=== PATIENT | female | born 1990 | race Caucasian/White ===

== ENCOUNTER 2019-02-01 15:51 | Inpatient (IN) | payer BC ==
[~2019-02-01 15:51] MED LIST: Bupivacaine/Epinephrine 0.25% 30 ML VIAL ONE
[2019-02-01] MEDS ORDERED: Docusate 100 MG CAP PO PRN (16:17)
[2019-02-01] MEDS ORDERED: Diphenoxylate HCl/Atropine Tablet PO PRN ×2 (16:17)
[2019-02-01] MEDS ORDERED: Zolpidem Tartrate 5 MG TAB PO PRN (16:17)
[2019-02-01] MEDS ORDERED: Acetaminophen 500 MG TAB PO PRN (16:17)
[2019-02-01] MEDS ORDERED: Misoprostol 200 MCG TAB PR PRN (16:17)
[2019-02-01] MEDS ORDERED: Ibuprofen 800 MG TAB PO PRN (16:17)
[2019-02-01] MEDS ORDERED: Ondansetron PF 4 MG/2 ML Vial IVP PRN (16:17)
[2019-02-01] MEDS ORDERED: hydrALAZINE 20 MG/ML VIAL SLOW IVP PRN (16:17)
[2019-02-01] MEDS ORDERED: Lidocaine 1% (PF) 30 ML VIAL SC PRN (16:17)
[2019-02-01] MEDS ORDERED: NS / Oxytocin 40 units/1000ml 1,000 ML IV PRN (16:17)
[2019-02-01] MEDS ORDERED: Butorphanol Tartrate 1 MG/ML VIAL SLOW IVP PRN (16:17)
[2019-02-01] MEDS ORDERED: Promethazine HCl 25 MG/ML VIAL IM PRN (16:17)
[2019-02-01] MEDS ORDERED: traMADol HCl 50 MG TAB PO PRN (16:21)
[2019-02-01] MEDS: Lactated Ringer's 1,000 ML IV SCH (16:30)
[2019-02-01] MEDS ORDERED: NS w/ Oxytocin 10 units 500 ML IV SCH ×2 (16:30)
[2019-02-01 16:38] LABS: Hemoglobin 12.7 g/dL (12.0-16.0); Mean Corpuscular HGB CONC 33.8 g/dL (32.0-36.0); Mean Corpuscular Hemoglobin 27.6 pg (27.0-31.0); Mean Corpuscular Volume 81.6 fL (78.0-98.0); Mean Platelet Volume 9.1 fL (7.4-10.4); Platelet Count 234 thou/uL (130-400); RBC Distribution Width 12.7 % (11.5-14.5); Red Blood Cell (RBC) Count 4.62 mill/uL (4.20-5.40); White Blood Cell (WBC) Count 7.8 thou/uL (4.8-10.8)
[2019-02-01 16:53] VITALS: BMI 32.8
[2019-02-01] MEDS: Misoprostol 100 MCG TAB VAG SCH ×2 (16:55→19:58)
[2019-02-01 17:20] LABS: HBSAg Index 0.19 S/CO (0-0.99); Hep B Surf Ag Non-Reactive S/CO (NonReactive); Syphilis Antibody Nonreactive (Nonreactive); Syphilis Antibody Index 0.05 S/CO (<1.00 Non-Reactive)
[2019-02-02] MEDS: Misoprostol 100 MCG TAB VAG SCH ×4 (00:49→14:56)
[2019-02-02] MEDS: Lactated Ringer's 1,000 ML IV SCH ×2 (01:20→08:18)
[2019-02-02] MEDS ORDERED: Lidocaine 1.5%/Epinephrine 1:200,000 5 ML AMPUL IJ ONE (07:56)
[2019-02-02] MEDS ORDERED: Fentanyl 4 mcg/Bup 0.1% Cadd 100 ML ONE (07:56)
[2019-02-02] MEDS ORDERED: Ondansetron PF 4 MG/2 ML Vial IVP PRN ×2 (08:48→10:42)
[2019-02-02] MEDS ORDERED: diphenhydrAMINE 50 MG/ML VIAL IVP PRN (08:48)
[2019-02-02] MEDS ORDERED: Acetaminophen 325 MG TAB PO PRN (08:48)
[2019-02-02] MEDS ORDERED: Naloxone HCl 0.4 mg/ml Vial IVP PRN ×2 (08:48)
[2019-02-02] MEDS ORDERED: Lactated Ringer's 500 ML IV PRN (08:48)
[2019-02-02] MEDS ORDERED: Promethazine HCl 25 MG/ML VIAL IM PRN (08:48)
[2019-02-02] MEDS ORDERED: ePHEDrine/0.9% NaCl/PF SYRINGE 50 mg/10 ml SLOW IVP PRN (08:48)
[2019-02-02] MEDS ORDERED: Communication Order-Pharmacy FS SCH (09:00)
[2019-02-02] MEDS ORDERED: Fentanyl 4 mcg/Bupivacaine 0.1% Cassette 100 ML EPIDURAL SCH (09:00)
[2019-02-02] MEDS ORDERED: hydrALAZINE 20 MG/ML VIAL SLOW IVP PRN (10:42)
[2019-02-02] MEDS ORDERED: diphenhydrAMINE 25 MG CAP PO PRN (10:42)
[2019-02-02] MEDS ORDERED: Preparation H Ointment 28 GM TUBE PR PRN (10:42)
[2019-02-02] MEDS ORDERED: Zolpidem Tartrate 5 MG TAB PO PRN (10:42)
[2019-02-02] MEDS ORDERED: Milk Of Magnesia 30 ML UDCUP PO PRN (10:42)
[2019-02-02] MEDS ORDERED: Lanolin Ointment 7 GM TUBE TOP PRN (10:42)
[2019-02-02] MEDS ORDERED: traMADol HCl 50 MG TAB PO PRN ×2 (10:42→10:56)
[2019-02-02] MEDS ORDERED: Benzocaine-Menthol 82.5 ML CAN TOP PRN (10:42)
[2019-02-02] MEDS ORDERED: Bisacodyl 10 MG SUPP PR PRN (10:42)
[2019-02-02] MEDS ORDERED: Misoprostol 200 MCG TAB VAG PRN (10:42)
[2019-02-02] MEDS ORDERED: Adacel (T-DAP) 0.5 ML SYRINGE IM ONE (10:42)
[2019-02-02] MEDS ORDERED: NS / Oxytocin 40 units/1000ml 1,000 ML IV SCH (10:45)
[2019-02-02] MEDS: Ibuprofen 800 MG TAB PO SCH ×2 (15:33→21:11)
[2019-02-02] MEDS: Docusate Calcium (SURFAK) 240 MG CAP PO SCH (21:11)
[2019-02-02] MEDS: Ferrous Sulfate 325 MG TAB PO SCH (21:11)
[2019-02-03] MEDS: Ibuprofen 800 MG TAB PO SCH ×3 (06:09→21:12)
[2019-02-03] MEDS: Docusate Calcium (SURFAK) 240 MG CAP PO SCH ×2 (08:41→21:12)
[2019-02-03] MEDS: Prenatal Vitamin 1 TAB PO SCH (08:41)
[2019-02-03] MEDS: Ferrous Sulfate 325 MG TAB PO SCH ×2 (08:43→17:28)
[2019-02-04] MEDS: Ibuprofen 800 MG TAB PO SCH (06:28)
[2019-02-04] MEDS: Ferrous Sulfate 325 MG TAB PO SCH (07:34)
[2019-02-04 08:51] VITALS: BP 105/65; TEMP 97.9
[2019-02-04] MEDS: Docusate Calcium (SURFAK) 240 MG CAP PO SCH (09:04)
[2019-02-04] MEDS: Prenatal Vitamin 1 TAB PO SCH (09:04)
== END 2019-02-04 13:00 | disposition home or self-care (01) | DRG 807 ==
LOC: L&D/OP 15:51 → L&D 15:58 → 3SW 02-02 13:54
PROVIDERS: ADMIT Obstetrics & Gynecology; ATTEND Obstetrics & Gynecology
PROC: 10E0XZZ Delivery of Products of Conception, External Approach (ICD-10-PCS; principal; 2019-02-02)
PROC: 0KQM0ZZ Repair Perineum Muscle, Open Approach (ICD-10-PCS; 2019-02-02)
PROC: 10907ZC Drainage of Amniotic Fluid, Therapeutic from Products of Conception, Via Natural or Artificial Opening (ICD-10-PCS; 2019-02-02)
PROC: 3E0P7VZ Introduction of Hormone into Female Reproductive, Via Natural or Artificial Opening (ICD-10-PCS; 2019-02-02)
PROC: 3E033VJ Introduction of Other Hormone into Peripheral Vein, Percutaneous Approach (ICD-10-PCS; 2019-02-02)
DX: O36.5930 Maternal care for other known or suspected poor fetal growth, third trimester, not applicable or unspecified (principal); Z37.0 Single live birth; O24.420 Gestational diabetes mellitus in childbirth, diet controlled; O70.1 Second degree perineal laceration during delivery; Z20.828 Contact with and (suspected) exposure to other viral communicable diseases; Z3A.37 37 weeks gestation of pregnancy; Z88.5 Allergy status to narcotic agent
CPT/HCPCS: 36415; 51702; 85027; 86780; 86850; 86900; 86901; 87340; 88307; J2001; J2590; J3490